=== PATIENT | male | born 1985 | race Caucasian/White ===

== ENCOUNTER 2022-05-01 06:46 | Emergency (ER) | payer OTHER ==
[~2022-05-01] VITALS: Ht 180.3 cm; Wt 68.0 kg
[~2022-05-01 06:46] MED LIST: ALBU90OI INH; DOXY100 PO; HYDACE5 PO; PRAHYD1AE TOP; PROCODE120 PO
[2022-05-01] MEDS ORDERED: NARCAN4 M1 (13:14)
== END 2022-05-01 15:20 | disposition home or self-care (01) ==
LOC: ER 06:46
DX: F15.10 Other stimulant abuse, uncomplicated (principal); Z88.5 Allergy status to narcotic agent
CPT/HCPCS: J1200; J2060